=== PATIENT | male | born 1980 | race Caucasian/White ===

== ENCOUNTER 2019-05-08 10:14 | Emergency (ER) | payer OTHER ==
[~2019-05-08] VITALS: Ht 190.5 cm; Wt 92.3 kg
[2019-05-08] MEDS ORDERED: normal saline 1000ML IV soln IVB ONE (10:50)
--- NOTE | 2019-05-08 11:22 | NUR ---
WHILE ATTEMPTING PT FIRST IV START PT HAS A 5 SECOND SYNCOPLE EPISODE FOLLOWED BY DISORIENTATION AND DIAPHORESIS. NO LOSS OF BOWEL OR BLADDER FUNCTION. WHEN PT ARROUSED ASKED IF THIS HAS EVER HAPPENED. PT STATED "ITS BEEN AWHILE SINCE JANICE DONE THAT"
[2019-05-08 11:28] LABS: BASOPHILS # (AUTO) 0.1 X10'3 (0-0.2); BASOPHILS % (AUTO) 0.6 % (0-1); EOSINOPHILS # (AUTO) 0.1 X10'3 (0-0.9); EOSINOPHILS % (AUTO) 0.9 % (0-6); HEMATOCRIT 47.1 % (42.0-52.0); HEMOGLOBIN 16.4 g/dl (14.0-17.9); LYMPHOCYTES # (AUTO) 2.6 X10'3 (1.1-4.8); LYMPHOCYTES % (AUTO) 24.4 % (21-51); MEAN CORPUSCULAR HEMOGLOBIN 31.3 PG (27.0-31.0); MEAN CORPUSCULAR HGB CONC 34.8 g/dL (33.0-36.5); MEAN CORPUSCULAR VOLUME 90.1 FL (78-98); MEAN PLATELET VOLUME 7.4 FL (7.4-10.4); MONOCYTES # (AUTO) 0.7 X10'3 (0-0.9); MONOCYTES % (AUTO) 6.6 % (2-12); NEUTROPHILS # (AUTO) 7.3 X10'3 (1.8-7.7); NEUTROPHILS % (AUTO) 67.5 % (42-75); PLATELET COUNT 282 X10'3 (140-440); RED BLOOD COUNT 5.22 X10'6 (4.70-6.10); RED CELL DISTRIBUTION WIDTH 12.9 % (11.5-14.5); WHITE BLOOD COUNT 10.8 X10'3 (4.5-11.0)
[2019-05-08 11:43] LABS: ALANINE AMINOTRANSFERASE 23 U/L (12-78); ALBUMIN 4.7 G/DL (3.4-5.0); ALBUMIN/GLOBULIN RATIO 1.3 (1.1-1.5); ALKALINE PHOSPHATASE 66 IU/L (46-116); ANION GAP 14 (8-16); ASPARTATE AMINO TRANSFERASE 8 U/L (10-37); BLOOD UREA NITROGEN 39 MG/DL (7-18); BUN/CREATININE RATIO 16.1 (5.4-32.0); CHLORIDE 97 MMOL/L (99-107); CREATININE 2.42 MG/DL (0.60-1.10); GLUCOSE 101 MG/DL (70-104); MAGNESIUM 1.9 MG/DL (1.5-2.4); PHOSPHORUS 3.2 MG/DL (2.3-4.5); POTASSIUM 4.1 MMOL/L (3.5-5.1); SODIUM 135 MMOL/L (135-145); TOTAL CARBON DIOXIDE 24.3 MMOL/L (24-32); TOTAL PROTEIN 8.4 G/DL (6.4-8.2); eGFR 30 ML/MIN
[2019-05-08 12:00] VITALS: BP 135/66
[2019-05-08 12:38] LABS: CLARITY,URINE CLEAR (Clear); COLOR,URINE YELLOW (Yellow); GLUCOSE, URINE NEGATIVE (Neg); KETONES,URINE 40 mg/dl (Neg); LEUKOCYTE ESTERASE ,URINE NEGATIVE (Neg); NITRITES, URINE NEGATIVE (Neg); PH,URINE 5.5 (4.8-8.0); PROTEIN,URINE NEGATIVE (Neg); UROBILINOGEN,URINE 0.2 E.U/dL (0.2-1.0)
[2019-05-08 12:39] LABS: OCCULT BLOOD,URINE TRACE-INTACT (Neg)
[2019-05-08 12:44] LABS: UA COLLECTION TYPE URINAL
[2019-05-08 12:46] LABS: BACTERIA,URINE NONE SEEN /HPF (Neg); HYALINE CASTS 0-3 /LPF (NEGATIVE); RBC,URINE 0-2 /HPF (0-2); SQUAMOUS EPITHELIAL CELL,UR NONE SEEN /LPF (FEW); WBC,URINE 0-4 /HPF (0-4)
[2019-05-08] MEDS ORDERED: CETI10TA15 PO (12:46)
[2019-05-08 12:51] LABS: CAL OXALATE CRYSTALS FEW /HPF (NEGATIVE)
[2019-05-08] MEDS ORDERED: OMEP20CA11 PO (12:55)
[2019-05-08] MEDS ORDERED: ATEN25TA PO (12:55)
[2019-05-08] MEDS ORDERED: LISI20TA PO (12:55)
[2019-05-08] MEDS ORDERED: ONDA4TAB6 PO (13:03)
== END 2019-05-08 13:11 | disposition home or self-care (01) ==
LOC: ER 10:14
DX: N17.9 Acute kidney failure, unspecified (principal); E86.0 Dehydration; Z79.899 Other long term (current) drug therapy
CPT/HCPCS: 36415; 80053; 81001; 83735; 84100; 84484; 85025; 96360; 99283; J7030

== ENCOUNTER 2021-09-29 17:15 | Emergency (ER) | payer OTHER ==
[~2021-09-29] VITALS: Ht 190.5 cm; Wt 87.3 kg
[~2021-09-29 17:15] MED LIST: ATEN25TA PO; CETI10TA15 PO; LISI20TA PO; OMEP20CA15 PO; ONDA4TAB6 PO
[2021-09-29 18:08] VITALS: BP 165/104
== END 2021-09-29 21:14 | disposition left against medical advice (07) ==
LOC: ER 17:15
DX: R51.9 Headache, unspecified (principal); Z53.21 Procedure and treatment not carried out due to patient leaving prior to being seen by health care provider
CPT/HCPCS: 70450; 93005